=== PATIENT | female | born 1955 | race Caucasian/White ===

== ENCOUNTER 2017-01-17 17:10 | Emergency (ER) | payer OTHER | END 2017-01-17 22:41 | disposition home or self-care (01) | LOC: ER 17:10 | DX: R07.89 Other chest pain (principal); M79.605 Pain in left leg; R06.02 Shortness of breath; E11.9 Type 2 diabetes mellitus without complications; I10 Essential (primary) hypertension; E03.9 Hypothyroidism, unspecified; Z90.11 Acquired absence of right breast and nipple; Z79.82 Long term (current) use of aspirin; Z79.4 Long term (current) use of insulin; Z79.899 Other long term (current) drug therapy; Z88.5 Allergy status to narcotic agent; Z88.8 Allergy status to other drugs, medicaments and biological substances | CPT/HCPCS: 36415; 73502-LT; 73552-LT; 96374; J1885 ==